=== PATIENT | female | born 1990 | race Caucasian/White ===

== ENCOUNTER 2016-08-24 10:20 | Day surgery (SDC) | payer MEDICARE, MEDICAID ==
[~2016-08-24 10:20] MED LIST: CERTAVITE PO; ZEGERID PO; [UNRECOGNIZED DRUG - OTHER] PO
== END 2016-08-24 23:59 | disposition home or self-care (01) ==
LOC: END 10:20
PROVIDERS: ATTEND Internal Medicine Gastroenterology
DX: Z43.1 Encounter for attention to gastrostomy (principal)

== ENCOUNTER 2016-11-16 11:30 | Day surgery (SDC) | payer MEDICARE, MEDICAID | END 2016-11-16 23:59 | disposition home or self-care (01) | LOC: END 11:30 | PROVIDERS: ATTEND Internal Medicine Gastroenterology | DX: Z46.59 Encounter for fitting and adjustment of other gastrointestinal appliance and device (principal) ==

== ENCOUNTER 2017-02-09 00:29 | Day surgery (SDC) | payer MEDICARE, MEDICAID | END 2017-02-09 23:59 | disposition home or self-care (01) | LOC: END 00:29 | PROVIDERS: ATTEND Internal Medicine Gastroenterology | DX: K94.23 Gastrostomy malfunction (principal); G80.0 Spastic quadriplegic cerebral palsy; G40.909 Epilepsy, unspecified, not intractable, without status epilepticus; R13.19 Other dysphagia ==